=== PATIENT | female | born 1980 | race Two or more races ===

== ENCOUNTER 2024-10-03 20:41 | Emergency (ER) | payer MEDICAID ==
[~2024-10-03] VITALS: Ht 165.1 cm; Wt 104.7 kg
[2024-10-03 21:00] VITALS: BP 168/109; PULSE 118; RESP 16; O2SAT 96
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
[2024-10-03] MEDS ORDERED: LORazepam 0.5 MG TAB PO ONE (22:00)
[2024-10-03] MEDS ORDERED: IBUPROFEN 800 MG TAB PO ONE (22:00)
[2024-10-03] MEDS ORDERED: LOSA-534 PO (22:01)
== END 2024-10-04 02:16 | disposition home or self-care (01) ==
LOC: ER 20:41
DX: M54.2 Cervicalgia (principal); M79.18 Myalgia, other site; I10 Essential (primary) hypertension; E66.9 Obesity, unspecified; Z76.0 Encounter for issue of repeat prescription; Z79.899 Other long term (current) drug therapy; Z90.49 Acquired absence of other specified parts of digestive tract; Y08.89XA Assault by other specified means, initial encounter; Y93.89 Activity, other specified; Y92.89 Other specified places as the place of occurrence of the external cause; Y99.8 Other external cause status